=== PATIENT | male | born 1955 | race Caucasian/White ===

== ENCOUNTER 2016-11-12 14:13 | Emergency (ER) | payer MEDICAID ==
[~2016-11-12] VITALS: Wt 90.0 kg
[~2016-11-12 14:13] MED LIST: ASPI-535 PO; CARV3.12 PO; CEFD300C2 PO; ERTA1VIA2 IV; SILO4CAP PO
--- NOTE | 2016-11-12 19:43 | ERD ---
ER Documentation Chief Complaint Date/Time DATE: 11/12/16 TIME: 19:42 Chief Complaint chest pain onset today with no sob no diaphoresis. no mild dizziness HPI 61-year-old male with a history of coronary artery disease status post CABG, prostate cancer, renal cancer status post left nephrectomy, metastatic disease to lung and bone and atrial fibrillation ambulatory to ED complaining of chest pain. He was awoken early this morning at 4 AM with sharp, moderate, right upper back pain which resolved but then was recurred at 9 AM with radiation to the right anterior chest. Pain is exacerbated by breathing but denies shortness of breath, orthopnea or PND. No cough or hemoptysis. No other chest pain or palpitations. No leg pain or swelling. Denies abdominal pain, nausea, vomiting, diarrhea or constipation. No fevers or chills. He was treated 10 days ago in [place] for pneumonia with Levaquin and doxycycline. At that time he was also told to discontinue Eliquis. ROS All systems reviewed and are negative except as per history of present illness. Medications Home Meds Reported Medications Levofloxacin* (Levofloxacin*) 750 Mg Tablet, 750 MG PO DAILY, TAB START 11/03/16 FOR 10 DAYS 11/12/16 Doxycycline Hyclate* (Doxycycline Hyclate*) 100 Mg Tablet.dr, 100 MG PO BID, TAB START 11/03/16 FOR 11 DAYS 11/12/16 Carvedilol* (Carvedilol*) 6.25 Mg Tablet, 6.25 MG PO BID, #60 TAB 11/12/16 Amiodarone Hcl* (Amiodarone Hcl*) 200 Mg Tablet, 200 MG PO DAILY, #30 TAB 11/12/16 Discontinued Reported Medications Cefdinir (Cefdinir) 300 Mg Capsule, 300 MG PO BID, CAP 11/29/14 Silodosin (Rapaflo) 4 Mg Capsule, 4 MG PO DAILY 12/07/13 Carvedilol* (Coreg*) 3.125 Mg Tablet, 3.125 MG PO DAILY 12/07/13 Aspirin Ec (Aspir 81) 81 Mg Tablet.dr, 81 MG PO DAILY 12/07/13 Discontinued Scripts Ertapenem Sodium (Invanz) 1 G/Vial Vial.port, 1 G IV DAILY for 28 Days Prov:SIVAN CHEUNG 12/02/14 Allergies Allergies: Coded Allergies: Sulfa (Sulfonamide Antibiotics) (Unverified Allergy, Unknown, ANAPHYLACTIC REACTION, 11/12/16) sulfamethoxazole (Unverified Allergy, Unknown, 11/12/16) trimethoprim (Unverified Allergy, Unknown, 11/12/16) PMhx/Soc Reviewed in chart. As per HPI. History of Surgery: Yes (left neprectomy,cholecystectomy,coronary artery bypass ) Anesthesia Reaction: No Hx Neurological Disorder: No Hx Respiratory Disorders: No Hx Cardiac Disorders: Yes (CAD) Hx Psychiatric Problems: No Hx Miscellaneous Medical Probl: Yes (adrenal gland removal,liver cyst,) Hx Alcohol Use: Yes (occasional only) Hx Substance Use: No Hx Tobacco Use: No FmHx No family history of stroke or cancer. Physical Exam Vitals Vital Signs Date Time Temp Pulse Resp B/P Pulse Ox O2 Delivery O2 Flow Rate FiO2 11/13/16 01:28 87 18 117/74 94 Room Air 11/12/16 23:00 78 16 108/68 Room Air 11/12/16 21:00 79 16 119/75 Room Air 11/12/16 14:24 98.2 73 21 106/59 95 Physical Exam Const: Alert and oriented no acute distress. Head: Atraumatic Eyes: Normal Conjunctiva ENT: Normal External Ears, Nose and Mouth. Neck: Full range of motion. No JVD. Resp: Decreased breath sounds with crackles at the left base. Otherwise clear without rales or rhonchi. Cardio: Regular rate and rhythm, no murmurs. Well-healed median sternotomy incision. Abd: Soft, non tender, non distended. Normal bowel sounds Skin: No petechiae or rashes Back: No midline or flank tenderness Ext: No cyanosis, or edema. No calf swelling or tenderness. Neur: Awake and alert. Cranial nerves II through XII are grossly intact. Psych: Normal Mood and Affect Result Diagram: 11/12/16192411/12/161924 Results 24 hrs Laboratory Tests Test 11/12/16 19:25 Activated Partial Thromboplast Time 35.3Sec Alanine Aminotransferase (ALT/SGPT) 27IU/L Albumin 3.7g/dl Albumin/Globulin Ratio 1.02 Alkaline Phosphatase 119IU/L Anion Gap 16 Aspartate Amino Transf (AST/SGOT) 25IU/L Basophils # 0.010^3/ul Basophils % 0.3% Blood Urea Nitrogen 22mg/dl Calcium Level 9.5mg/dl Carbon Dioxide Level 28mmol/L Chloride Level 100mmol/L Creatinine 1.23mg/dl D-Dimer 5232.41ng/ml D-Dimer Comment Direct Bilirubin 0.00mg/dl Eosinophils # 0.110^3/ul Eosinophils % 1.3% Globulin 3.60g/dl Glucose Level 80mg/dl Hematocrit 28.5% Hemoglobin 9.1g/dl INR International Normalized Ratio 1.10 Indirect Bilirubin 0.0mg/dl Lymphocytes # 0.610^3/ul Lymphocytes % 9.4% Mean Corpuscular Hemoglobin 30.7pg Mean Corpuscular Hemoglobin Concent 31.9g/dl Mean Corpuscular Volume 96.3fl Mean Platelet Volume 9.8fl Monocytes # 0.910^3/ul Monocytes % 14.3% Neutrophils # 4.710^3/ul Neutrophils % 74.1% Nucleated Red Blood Cells # 0.010^3/ul Nucleated Red Blood Cells % 0.0/100WBC Platelet Count 30174^3/UL Potassium Level 4.6mmol/L Prothrombin Time 14.2Sec Prothrombin Time Ratio 1.1 Red Blood Count 2.9610^6/ul Red Cell Distribution Width 18.3% Sodium Level 139mmol/L Total Bilirubin 0.0mg/dl Total Protein 7.3g/dl Troponin I < 0.012ng/ml White Blood Count 6.310^3/ul RHYTHM STRIP INTERPRETATION: Time: []. Indication: []. EKG: TIME: [] EP Interpretation: Abnormal EKG. IMAGING: PROCEDURE: XR Chest. CLINICAL INDICATION: 61-year-old with chest pain. TECHNIQUE: Single frontal view of the chest was obtained COMPARISON: Chest x-ray 12/01/2014 siddharth FINDINGS: The soft tissues are normal. There are degenerative osteophytes in the thoracic spine. The heart is enlarged. It is unchanged. The cardiomediastinal silhouette, pulmonary vasculature and hilar structures are normal. A pleural-based mass has developed along the lower half of the left chest wall measuring up to 12 cm in length by 3.7 cm in width. A mediastinotomy was performed. There is some vascular crowding and compressive atelectasis in the left lung. There is a faint nodular density probably the result of vascular markings in the right costophrenic angle. The costophrenic angles are normal. IMPRESSION: 1. A CT scan of the chest with IV contrast is recommended to further characterize a pleural base mass along the lower lateral left chest wall measuring up to 3.7 cm in width by 12 cm in length. There is possible bony destruction of the posterior lateral left sixth rib. This finding raises the specter of malignancy. These findings are not identified on the prior study of 12/01/2014. RPTAT:AAJJ Physician Rhett Date Time Electronically viewed and signed by Physician Rhett on 11/12/2016 20:07 JM/ Procedures/MDM DOCUMENTS REVIEWED: ED nurse, prior ED, prior records MEDICAL DECISION MAKIN-year-old male with a history of coronary artery disease status post CABG, prostate cancer, renal cancer status post left nephrectomy, metastatic disease to lung and bone and atrial fibrillation ambulatory to ED complaining of chest pain. Chest x-ray reveals a left lower lobe pleural-based mass with bony metastases of which the patient is aware of it being treated at [facility]. Patient with high risk for pulmonary embolism considering his cancer and recent discontinuation of anticoagulation. Atypical chest pain without ischemic EKG changes, elevated troponin or other signs of acute coronary syndrome. VQ scan is low probability for PE but final reading is pending. Atypical chest pain of uncertain etiology likely musculoskeletal. Recent CT scan in [place] 10 days unremarkable as per patient and not repeated today. Stable for discharge with precautionary instructions and followup tomorrow morning at [facility] as scheduled. Counseled patient and family regarding diagnostic workup, diagnosis and need for followup. Understands to return to ED if symptoms recur, worsen or any other concerns. Departure Diagnosis: Primary Impression: Acute chest pain Additional Impressions: History of renal cell cancer History of nephrectomy History of coronary artery disease History of coronary artery bypass graft Mass of lower lobe of left lung Condition: Stable JOHN CORDOBA MD Nov 12, 2016 19:43
[2016-11-12 19:49] LABS: ADD SCAN DIFF NO
[2016-11-12 19:52] LABS: ABNORMAL IP MESSAGE 1; BASOPHILS % 0.3 % (0.0-2.0); EOSINOPHILS # 0.1 10^3/ul (0.0-0.5); EOSINOPHILS % 1.3 % (0.0-7.0); HEMATOCRIT 28.5 % (42.0-52.0); HEMOGLOBIN 9.1 g/dl (14.0-18.0); LYMPHOCYTES # 0.6 10^3/ul (0.8-2.9); LYMPHOCYTES % 9.4 % (15.0-51.0); MEAN CORPUSCULAR HEMOGLOBIN 30.7 pg (29.0-33.0); MEAN CORPUSCULAR HGB CONC 31.9 g/dl (32.0-37.0); MEAN CORPUSCULAR VOLUME 96.3 fl (82.0-101.0); MEAN PLATELET VOLUME 9.8 fl (7.4-10.4); MONOCYTE # 0.9 10^3/ul (0.3-0.9); MONOCYTES % 14.3 % (0.0-11.0); NEUTROPHIL # 4.7 10^3/ul (1.6-7.5); NEUTROPHILS % 74.1 % (39.0-77.0); PLATELET COUNT 325 10^3/UL (140-415); RED BLOOD COUNT 2.96 10^6/ul (4.70-6.10); RED CELL DISTRIBUTION WIDTH 18.3 % (11.5-14.5); WHITE BLOOD COUNT 6.3 10^3/ul (4.8-10.8)
[2016-11-12 20:00] LABS: CHLORIDE 100 mmol/L (97-110)
[2016-11-12 20:01] LABS: ALBUMIN 3.7 g/dl (3.3-4.9); POTASSIUM 4.6 mmol/L (3.5-5.1); SODIUM 139 mmol/L (135-144)
[2016-11-12 20:03] LABS: CREATININE 1.23 mg/dl (0.61-1.24); INR 1.1; PARTIAL THROMBOPLASTIN TIME 35.3 Sec (25.0-35.0); PROTIME 14.2 Sec (12.2-14.2); PT RATIO 1.1
[2016-11-12 20:04] LABS: ALANINE AMINOTRANSFERASE 27 IU/L (13-69); ALBUMIN/GLOBULIN RATIO 1.02; ALKALINE PHOSPHATASE 119 IU/L (42-121); ANION GAP 16 (8-16); ASPARTATE AMINO TRANSFERASE 25 IU/L (15-46); BLOOD UREA NITROGEN 22 mg/dl (7-20); CALCIUM 9.5 mg/dl (8.4-10.2); CARBON DIOXIDE 28 mmol/L (21-31); GLUCOSE 80 mg/dl (70-220); TOTAL PROTEIN 7.3 g/dl (6.1-8.1)
--- NOTE | 2016-11-12 20:07 | RADRPT ---
PROCEDURE: XR Chest. CLINICAL INDICATION: 61-year-old with chest pain. TECHNIQUE: Single frontal view of the chest was obtained COMPARISON: Chest x-ray 12/01/2014 siddharth FINDINGS: The soft tissues are normal. There are degenerative osteophytes in the thoracic spine. The heart i s enlarged. It is unchanged. The cardiomediastinal silhouette, pulmonary vasculature and hilar str uctures are normal. A pleural-based mass has developed along the lower half of the left chest wall m easuring up to 12 cm in length by 3.7 cm in width. A mediastinotomy was performed. There is some va scular crowding and compressive atelectasis in the left lung. There is a faint nodular density prob ably the result of vascular markings in the right costophrenic angle. The costophrenic angles are n ormal. IMPRESSION: 1. A CT scan of the chest with IV contrast is recommended to further characterize a pleural base mas s along the lower lateral left chest wall measuring up to 3.7 cm in width by 12 cm in length. There is possible bony destruction of the posterior lateral left sixth rib. This finding raises the spec ter of malignancy. These findings are not identified on the prior study of 12/01/2014. RPTAT:AAJJ Physician Rhett Date Time Electronically viewed and signed by Physician Rhett on 11/12/2016 20:07 BRYCE/
[2016-11-12 20:30] LABS: TROPONIN-I < 0.012 ng/ml (0.00-0.12)
[2016-11-12] MEDS ORDERED: CARV6.2579 PO (20:30)
[2016-11-12] MEDS ORDERED: AMIO200T2 PO (20:30)
[2016-11-12] MEDS ORDERED: DOXY100T20 PO (20:32)
[2016-11-12] MEDS ORDERED: LEVO750T8 PO (20:33)
[2016-11-12 21:01] LABS: D-DIMER 5232.41 ng/ml (<460)
[2016-11-13 01:28] VITALS: BP 117/74; PULSE 87; RESP 18
--- NOTE | 2016-11-13 07:57 | RADRPT ---
PROCEDURE: Ventilation-perfusion scan CLINICAL INDICATION: Chest pain. Concern for pulmonary embolism.. TECHNIQUE: The lung perfusion scan is performed following the intravenous injection of 5.9 mCi ginger hnetium 99m MAA and 8 standard imaging projections are acquired. The lung ventilation scan is performed following the inhalation of 35.1 mCi technetium 99m DTPA aero marques and 8 imaging projections are acquired. The images are submitted to the PACS for review. COMPARISON: Chest x-ray 11/12/2016. FINDINGS: Homogeneous distribution of radiopharmaceutical a lung perfusion scan is identified with no mismatch ed defects to suggest pulmonary embolism. Matching defects in the lateral aspect of the lower left hemithorax correspond to the pleural based abnormality on the chest x-ray. There is no evidence of retained aerosol or ventilation defects. RPTAT:HJJR IMPRESSION: 1. Low probability for pulmonary embolism. 2. Focal three-way matching defect in the low lateral aspect of the left lower lobe corresponding to the pleural based abnormality on the chest x-ray. Physician Mahad Date Time Electronically viewed and signed by Physician Mahad on 11/13/2016 01:05 /
== END 2016-11-13 01:28 | disposition home or self-care (01) ==
LOC: E/R 14:13
DX: R07.9 Chest pain, unspecified (principal); I25.10 Atherosclerotic heart disease of native coronary artery without angina pectoris; R91.8 Other nonspecific abnormal finding of lung field; Z79.82 Long term (current) use of aspirin; Z85.46 Personal history of malignant neoplasm of prostate; Z90.5 Acquired absence of kidney; Z95.1 Presence of aortocoronary bypass graft; Z85.528 Personal history of other malignant neoplasm of kidney
CPT/HCPCS: 36415; 71010; 78582; 80053; 84484; 85025; 85378; 85610; 85730; 93005; A9539; A9540; Z7502

== ENCOUNTER 2016-12-02 15:27 | Emergency (ER) | END 2016-12-02 16:01 | disposition left against medical advice (07) | DX: Z53.21 Procedure and treatment not carried out due to patient leaving prior to being seen by health care provider (principal) ==